=== PATIENT | female | born 1970 ===

== ENCOUNTER 2021-10-24 06:24 | Day surgery (SDC) | payer OTHER ==
[~2021-10-24] VITALS: Ht 147.3 cm; Wt 55.8 kg
[~2021-10-24 06:24] MED LIST: CRESTOR40 MG PO; PROPAFENONE HC225 M1 PO; TOPROL XL25 MG PO; ZETIA10 MG PO
== END 2021-10-24 20:40 | disposition home or self-care (01) ==
LOC: CIR.AMB 06:24
PROVIDERS: ATTEND Orthopaedic Surgery Hand Surgery
DX: S68.112D Complete traumatic metacarpophalangeal amputation of right middle finger, subsequent encounter (principal); Z88.0 Allergy status to penicillin; I48.91 Unspecified atrial fibrillation; I10 Essential (primary) hypertension; E78.5 Hyperlipidemia, unspecified